=== PATIENT | female | born 1995 | race African-American/Black ===

== ENCOUNTER 2023-03-20 13:18 | Emergency (ER) | payer SELFPAY ==
[2023-03-20 14:12] LABS: ALT (SGPT) 21 U/L (8-55); AST (SGOT) 24 U/L (5-34); Albumin 3.8 g/dL (3.5-5.0); Alkaline Phosphatase 98 U/L (40-110); Anion Gap 13 mmol/L (10-20); BUN (Urea Nitrogen) 8 mg/dL (7.0-18.7); Bilirubin, Total 0.5 mg/dL (0.2-1.2); Calc. Creatinine Clearance 0 mL/min (70-130); Calcium 8.9 mg/dL (7.8-10.44); Carbon Dioxide 23 mmol/L (22-29); Chloride 107 mmol/L (98-107); Estimated GFR 109; Globulin 3.4 g/dL (2.4-3.5); Glucose 88 mg/dL (70-105); Potassium 4.5 mmol/L (3.5-5.1); Protein, Total 7.2 g/dL (6.0-8.3); Sodium 138 mmol/L (136-145)
[2023-03-20 14:40] LABS: Hemoglobin 13.7 g/dL (12.0-15.5); Mean Corpuscular HGB CONC 33.8 g/dL (32.0-36.0); Mean Corpuscular Hemoglobin 30.7 pg (27.0-33.0); Mean Corpuscular Volume 90.8 fl (81.6-98.3); Mean Platelet Volume 9.8 fl (7.4-10.4); Platelet Count 347 10x3/uL (150-450); RBC Distribution Width 12.8 % (11.5-14.5); Red Blood Cell (RBC) Count 4.46 10x6/uL (3.90-5.03); White Blood Cell (WBC) Count 6.4 10x3/uL (3.5-10.5)
[2023-03-20 14:55] LABS: Monocytes 5 % (0-10); Reactive Lymphocytes 5 % (0-10)
[2023-03-20 14:57] LABS: Eosinophils 1 % (0-10); Lymphocytes 58 % (21-51); Neutrophil 30 % (42-75); Platelet Adequacy Comment Appears Adequate; RBC Morph Comment Within Normal Limits
[2023-03-20 14:59] LABS: MDiff Complete? YES
== END 2023-03-20 15:15 | disposition home or self-care (01) ==
LOC: CSHERS 13:18
DX: M94.0 Chondrocostal junction syndrome [Tietze] (principal)
CPT/HCPCS: 36415; 71045; 80053; 84484; 85025; 93005

== ENCOUNTER 2024-01-22 11:26 | Emergency (ER) | payer OTHER ==
[2024-01-22] MEDS ORDERED: Ketorolac Tromethamine 30 MG (1 mL) VIAL ONE (11:50)
== END 2024-01-22 12:55 | disposition home or self-care (01) ==
LOC: CSHERS 11:26
DX: J02.8 Acute pharyngitis due to other specified organisms (principal); I10 Essential (primary) hypertension; Z79.899 Other long term (current) drug therapy
CPT/HCPCS: 87430; 96372; 99283; J1885

== ENCOUNTER 2025-03-25 22:36 | Emergency (ER) | payer SELFPAY ==
[2025-03-26] MEDS ORDERED: Ibuprofen 200 MG TAB ONE (00:27)
== END 2025-03-26 00:40 | disposition home or self-care (01) ==
LOC: CSHERS 22:36
DX: J02.9 Acute pharyngitis, unspecified (principal); I10 Essential (primary) hypertension
CPT/HCPCS: 87081; 87426; 87430; 99284

== ENCOUNTER 2025-03-26 18:25 | Emergency (ER) | payer SELFPAY ==
[~2025-03-26 18:25] MED LIST: Iopamidol 300 61% 100 ML VIAL FS ONE
[2025-03-26 20:19] LABS: BHCG - Serum Negative (NEGATIVE); Pregs Control Background? CLEAR/WHITE (CLR/WHITE); Pregs Control Bar Appear? YES (CONTROL BAR)
[2025-03-26 20:26] LABS: ALT (SGPT) 19 U/L (Less than 34); AST (SGOT) 21 U/L (11-34); Albumin 3.5 g/dL (3.1-4.5); Alkaline Phosphatase 84 U/L (40-110); Anion Gap 13 mmol/L (10-20); BUN (Urea Nitrogen) 6 mg/dL (7.0-18.7); Bilirubin, Total 1.1 mg/dL (0.3-1.2); Calc. Creatinine Clearance 0 mL/min (70-130); Calcium 9.3 mg/dL (7.8-10.44); Carbon Dioxide 24 mmol/L (22-29); Chloride 102 mmol/L (98-107); Globulin 4.7 g/dL (2.4-3.5); Glucose 84 mg/dL (70-105); Potassium 3.9 mmol/L (3.5-5.1); Sodium 135 mmol/L (136-145)
[2025-03-26] MEDS ORDERED: Acetaminophen 500 MG TAB ONE (20:30)
[2025-03-26 20:33] LABS: #Basophils 0.04 10x3/uL (0.0-0.2); #Eosinophils 0.17 10x3/uL (0.0-0.5); #Monocytes 0.97 10x3/uL (0.0-1.1); #Neutrophils 7.56 10x3/uL (1.5-8.4); %Basophils 0.3 % (0.0-2.0); %Eosinophils 1.4 % (0.0-6.0); %Lymphocytes 26.7 % (18.0-47.0); %Monocytes 8.1 % (0.0-10.0); %Neutrophils 63.2 % (40.0-75.0); Hematocrit 38.7 % (34.9-44.5); Hemoglobin 12.8 g/dL (12.0-15.5); Mean Corpuscular Hemoglobin 30.2 pg (27.0-33.0); Mean Corpuscular Volume 91.3 fL (81.6-98.3); Platelet Count 373 10x3/uL (150-450); Red Blood Cell (RBC) Count 4.24 10x6/uL (3.90-5.03); White Blood Cell (WBC) Count 11.98 10x3/uL (3.5-10.5)
[2025-03-26] MEDS ORDERED: Boostrix 0.5 ML (Tdap) VIAL (>/=7 yrs of age) ONE (22:06)
[2025-03-26] MEDS ORDERED: Lidocaine 1% (PF) 30 ML VIAL ONE (22:57)
[2025-03-26] MEDS ORDERED: Ketorolac Tromethamine 30 MG (1 mL) VIAL ONE (23:17)
== END 2025-03-26 23:56 | disposition home or self-care (01) ==
LOC: CSHERS 18:25
DX: L02.31 Cutaneous abscess of buttock (principal); I10 Essential (primary) hypertension; Z23 Encounter for immunization; Z55.6 Problems related to health literacy
CPT/HCPCS: 10120; 36415; 74177; 80053; 83605; 84703; 85025; 87040; 90471; 90715; 96365; 96366; 96375; J1885; J2270; J7030; Q9967

== ENCOUNTER 2025-04-20 17:12 | Emergency (ER) | payer SELFPAY ==
[2025-04-20 18:17] LABS: #Basophils 0.04 10x3/uL (0.0-0.2); #Eosinophils 0.10 10x3/uL (0.0-0.5); #Monocytes 0.47 10x3/uL (0.0-1.1); #Neutrophils 2.31 10x3/uL (1.5-8.4); %Basophils 0.6 % (0.0-2.0); %Eosinophils 1.4 % (0.0-6.0); %Lymphocytes 58.9 % (18.0-47.0); %Monocytes 6.6 % (0.0-10.0); %Neutrophils 32.4 % (40.0-75.0); Hematocrit 38.7 % (34.9-44.5); Hemoglobin 12.8 g/dL (12.0-15.5); Mean Corpuscular Hemoglobin 30.1 pg (27.0-33.0); Mean Corpuscular Volume 91.1 fL (81.6-98.3); Platelet Count 393 10x3/uL (150-450); Red Blood Cell (RBC) Count 4.25 10x6/uL (3.90-5.03); White Blood Cell (WBC) Count 7.13 10x3/uL (3.5-10.5)
[2025-04-20 18:31] LABS: ALT (SGPT) 30 U/L (Less than 34); AST (SGOT) 30 U/L (11-34); Albumin 3.9 g/dL (3.1-4.5); Alkaline Phosphatase 95 U/L (40-110); Anion Gap 12 mmol/L (10-20); BUN (Urea Nitrogen) 7 mg/dL (7.0-18.7); Bilirubin, Total 0.8 mg/dL (0.3-1.2); CK (CPK) 229 U/L (29-168); Calc. Creatinine Clearance 0 mL/min (70-130); Calcium 9.4 mg/dL (7.8-10.44); Carbon Dioxide 26 mmol/L (22-29); Chloride 104 mmol/L (98-107); Globulin 3.8 g/dL (2.4-3.5); Glucose 86 mg/dL (70-105); Lipase 20 U/L (8-78); Potassium 4.2 mmol/L (3.5-5.1); Sodium 138 mmol/L (136-145)
[2025-04-20 18:34] LABS: Troponin I Less than 0.010 ng/mL (< 0.028)
== END 2025-04-20 19:28 ==
LOC: CSHERS 17:12
DX: S40.022A Contusion of left upper arm, initial encounter (principal); R20.2 Paresthesia of skin; I10 Essential (primary) hypertension; X58.XXXA Exposure to other specified factors, initial encounter
CPT/HCPCS: 36415; 71045; 80053; 82550; 83690; 84484; 85025; 93005

== ENCOUNTER 2025-04-26 17:55 | Emergency (ER) | payer SELFPAY ==
[2025-04-26] MEDS ORDERED: Amoxicillin/Potassium Clav 875 MG TAB ONE (20:48)
[2025-04-26] MEDS ORDERED: Dexamethasone 10 MG/ML VIAL ONE (20:48)
[2025-04-26] MEDS ORDERED: Ketorolac Tromethamine 30 MG (1 mL) VIAL ONE (20:48)
== END 2025-04-26 23:02 | disposition home or self-care (01) ==
LOC: CSHERS 17:55
DX: J02.9 Acute pharyngitis, unspecified (principal); I10 Essential (primary) hypertension
CPT/HCPCS: 87081; 87400; 87426; 87430; 96372; 99283; J1100; J1885

== ENCOUNTER 2025-07-06 19:06 | Emergency (ER) | payer SELFPAY ==
[2025-07-06 20:32] LABS: Glucose, Urine (Dipstick) Normal (Negative); Leukocyte 500 (Negative); Protein, Urine (Dipstick) Negative (Neg-Trace); Specific Gravity, Urine 1.020 (1.005-1.030)
[2025-07-06 20:43] LABS: #Basophils 0.05 10x3/uL (0.0-0.2); #Eosinophils 0.16 10x3/uL (0.0-0.5); #Monocytes 0.57 10x3/uL (0.0-1.1); #Neutrophils 3.62 10x3/uL (1.5-8.4); %Basophils 0.6 % (0.0-2.0); %Eosinophils 1.9 % (0.0-6.0); %Lymphocytes 48.3 % (18.0-47.0); %Monocytes 6.7 % (0.0-10.0); %Neutrophils 42.3 % (40.0-75.0); Hematocrit 38.6 % (34.9-44.5); Hemoglobin 12.8 g/dL (12.0-15.5); Mean Corpuscular Hemoglobin 29.9 pg (27.0-33.0); Mean Corpuscular Volume 90.2 fL (81.6-98.3); Platelet Count 390 10x3/uL (150-450); Red Blood Cell (RBC) Count 4.28 10x6/uL (3.90-5.03); White Blood Cell (WBC) Count 8.55 10x3/uL (3.5-10.5)
[2025-07-06 20:45] LABS: Bacteria/HPF 2+ HPF (None Seen); CAUTI Indications for Culture Pelvic or flank pain; Trichomonas/HPF Rare HPF (None Seen)
[2025-07-06 20:48] LABS: Mucous/LPF 1+ LPF (<2+)
[2025-07-06 20:50] LABS: Urine Culture Reflex Yes Yes
[2025-07-06 20:56] LABS: ALT (SGPT) 29 U/L (Less than 34); AST (SGOT) 32 U/L (11-34); Albumin 3.8 g/dL (3.1-4.5); Alkaline Phosphatase 95 U/L (40-110); Anion Gap 12 mmol/L (10-20); BUN (Urea Nitrogen) 7 mg/dL (7.0-18.7); Bilirubin, Total 0.6 mg/dL (0.3-1.2); Calc. Creatinine Clearance 0 mL/min (70-130); Calcium 9.3 mg/dL (7.8-10.44); Carbon Dioxide 23 mmol/L (22-29); Chloride 105 mmol/L (98-107); Globulin 3.9 g/dL (2.4-3.5); Glucose 89 mg/dL (70-105); Potassium 3.7 mmol/L (3.5-5.1); Sodium 136 mmol/L (136-145)
[2025-07-07 13:33] LABS: Chlamydia by PCR, Vaginal Swab Not Detected (NotDetected); GC by PCR, Vaginal Swab Not Detected (NotDetected)
== END 2025-07-06 21:25 | disposition home or self-care (01) ==
LOC: CSHERS 19:06
DX: A59.01 Trichomonal vulvovaginitis (principal); N39.0 Urinary tract infection, site not specified; I10 Essential (primary) hypertension
CPT/HCPCS: 36415; 80053; 81001; 84702; 85025; 86900; 86901; 87086; 87480; 87491; 87510; 87591; 87660; 99284